=== PATIENT | male | born 1990 | race Caucasian/White ===

== ENCOUNTER 2017-04-16 17:30 | Inpatient (IN) | payer MEDICAID, OTHER ==
[~2017-04-16] VITALS: Ht 188 cm; Wt 72.3 kg
[~2017-04-16 17:30] MED LIST: IBUP800T28 PO
[2017-04-16 17:48] VITALS: BP 128/84; PULSE 66; RESP 12; O2SAT 100
--- NOTE | 2017-04-16 19:20 | ED.REPORT ---
HPI-General Illness Date of Service April 16, 2017 ED Provider: Mohit Garduno MD Pt is a healthy 26 y/o male presenting to the ED c/o constant lower abdominal pain onset 1 day ago. His girlfriend and he were "messing around" 2 days ago and believes that an unknown object may be lost up in his rectum. The patient has been attempting to have a bowel movement but instead of stool bright red blood is produced. His last BM was 2 days ago. He has no history of similar symptoms or hemorrhoids. Pt is a very vague historian and at first does not disclose that he thinks there is something in his rectum. He frequently changes his story and explanation throughout history taking. Nursing Notes Stated Complaint: BLOOD WHEN GOING TO THE BATHROOM Chief Complaint: Male Abdominal Pain Nursing Notes Reviewed: Yes Allergies: Coded Allergies: acetaminophen (Unverified Adverse Reaction, Severe, ITCHING (FROM HYDROCODONE), 10/16/15) hydrocodone (Verified Adverse Reaction, Severe, ITCHING, 10/16/15) Scheduled PRN Ibuprofen (Ibuprofen) 800 Mg Tablet 800 MG PO TID PRN PRN For Pain General Time Seen by MD: 19:13 Chief Complaint Abdominal pain Hx Obtained From: Patient Arrived By: Walk-in Sudden in Onset?: No Onset Occurred: 1 day ago Symptom Duration: Since onset Location: : Abdomen Quality: Painful Severity: Current: Moderate Severity: Maximum: Moderate Recent Healthcare: No recent doctor visit, No recent hospitalization Similar Sx Previous: No Past Medical History Past Medical History Healthy Past Surgical History ACL repeair on left 08/2015 Family History noncontributory Smoking History Current Every Day Smoker Social History Alcohol Use: Denies alcohol use Drug Use: THC Other Social History: Good social support, Local resident Occupation has a place to stay Ambulatory Status Independent Review of Systems Full Review of Systems Constitutional: Denies: Chills, Fever Respiratory: Denies: Non-productive cough, Shortness of breath GI: Reports: Abdominal pain, Constipation, Denies: Nausea, Vomiting Complete sys rev & neg: except as marked. Physical Exam Vital Signs Vital Signs Date Time Temp Pulse Resp B/P Pulse Ox O2 Delivery O2 Flow Rate FiO2 04/16/17 17:48 36.5 66 12 128/84 100 Room Air Initial VS: Reviewed, Vital signs normal Head / Eyes: Atraumatic, Normocephalic, PERRL ENT: Mucous membranes moist, Conjunctiva normal, No scleral icterus Neck: Supple, Full range of motion Respiratory: Breath sounds normal, Clear to auscultation, No respiratory distress Cardiovascular: Regular rate & rhythm, Heart sounds normal, Intact distal pulses Extremities: Vascular intact, Neuro intact, No swelling, No tenderness Skin: Warm, Dry, No cyanosis Neurologic: Alert, Oriented, Nonfocal Psychiatric: Mood/affect normal, Behavior normal, Normal thought content General/Constitutional: Awake, Alert, No acute distress, Well appearing, Cooperative, Not toxic appearing Abdomen: Atraumatic, Soft, No guarding, No rebound, No distention, No palpable mass Mild tenderness lower abdomen bilaterally Male Genitourinary: Atraumatic, No meatal blood, Testes NL (descended) Circumsized Rectum / Perineum: Atraumatic, No gross blood, No discharge, No fecal impaction , No fissures, No hemorrhoids, No mass, Prostate NL No foreign body palpated in rectum No stool in rectal vault Interpretation & Diagnostics Lab Results Interpretation Result Diagram: 04/16/17204304/16/172043 Test 04/16/17 20:44 White Blood Count 9.6th/mm3 (3.8-10.1) Red Blood Count 5.11mil/mm3 (4.40-5.80) Hemoglobin 15.1g/dL (13.8-17.2) Hematocrit 44.6% (41.0-50.0) Mean Corpuscular Volume 87.3fL (81-100) Mean Corpuscular Hemoglobin 29.5pg (27.0-35.0) Mean Corpuscular Hemoglobin Concent 33.9% (32.0-37.0) Red Cell Distribution Width 13.6% (12.3-15.4) Platelet Count 289bil/L (150-400) Neutrophils (%) (Auto) 76.2% (40-74) Lymphocytes (%) (Auto) 13.7% (14-46) Monocytes (%) (Auto) 7.7% (4-12) Eosinophils (%) (Auto) 2.0% (0-5) Basophils (%) (Auto) 0.2% (0-3) Sodium Level 137mEq/L (134-144) Potassium Level 3.9mEq/L (3.5-5.2) Chloride Level 99mEq/L (97-108) Carbon Dioxide Level 26mmol/L (18-29) Blood Urea Nitrogen 14mg/dL (6-20) Creatinine 0.84mg/dL (0.76-1.27) Estimat Glomerular Filtration Rate 117mL/min (>59) Glucose Level 107mg/dL (60-99) Calcium Level 9.1mg/dL (8.5-10.1) Magnesium Level 2.0mg/dL (1.6-2.6) Total Bilirubin 0.3mg/dL (0.0-1.2) Aspartate Amino Transf (AST/SGOT) 20U/L (0-50) Alanine Aminotransferase (ALT/SGPT) 22U/L (0-44) Alkaline Phosphatase 77U/L (25-150) Total Protein 6.8g/dL (6.4-8.4) Albumin 3.8g/dL (3.4-5.0) Lipase 12U/L (13-60) Hold Wood Top Tube Received (Received) Re-Eval/Medical Decision Med Decision/Clinical Course Pt is a healthy 26 y/o male presenting to the ED c/o constant lower abdominal pain onset 1 day ago. His girlfriend and he were "messing around" 2 days ago and believes that an unknown object may be lost up in his rectum. The patient has been attempting to have a bowel movement but instead of stool bright red blood is produced. His last BM was 2 days ago. He has no history of similar symptoms or hemorrhoids. Pt is a very vague historian and at first does not disclose that he thinks there is something in his rectum. He frequently changes his story and explanation throughout history taking. Here in the emergency room he is afebrile and hemodynamically stable. Rectal examination reveals no foreign body, no fissures, no hemorrhoids and no bright red blood or melena. Given the extremely vague nature of the patient's history and unclear presentation I opted to obtain a CT scan of the abdomen and pelvis with contrast which per my conversation with attending radiologist revealed possible pelvic abscess. Radiologist was unable to fully interpret the CT images and requested repeat CT scan with oral contrast. Meanwhile laboratory studies including CBC and CMP resulted unremarkable. He was signed out to oncoming physician pending repeat CT scan with oral contrast. Time of Eval: :15 Re-Evaluation/Progress Note: Omnipaque being ingested for oral contrast abdominal CT scan. Will sign out patient. Counseled Regarding: Diagnosis, Lab results Discharge & Departure Primary Impression: Lower abdominal pain Discharge Condition All VS Reviewed: Yes Condition: Stable Referrals: [facility] Care Transferred to: Dr. Jackson Care Transferred at: 23:59 Scribe Attestation Portions of this note were transcribed by Tom Piedra. I, Dr. Garduno personally performed the history, physical exam and medical decision-making; I reviewed and confirmed the accuracy of the information in the transcribed note. Signed by Maged Nance, 04/16/17 - 1929 Mohit Garduno MD April 16, 2017 19:20 TOM PIEDRA April 16, 2017 19:27
[2017-04-16] MEDS ORDERED: 0.9% Sodium Chloride 1,000 ML IV ONE (20:31)
[2017-04-16 20:59] LABS: BASOPHILS % (AUTO) 0.2 % (0-3); MONOCYTES % (AUTO) 7.7 % (4-12); Mean Corpuscular Hemoglobin 29.5 pg (27.0-35.0); Mean Corpuscular Volume 87.3 fL (81-100); NEUTROPHILS % (AUTO) 76.2 % (40-74); Platelet Count 289 bil/L (150-400)
[2017-04-16] MEDS ORDERED: IOHEXOL ONE (22:54)
[2017-04-16] MEDS ORDERED: Iohexol 240 mg/mL 10 mL Inj PO ONE (23:55)
[2017-04-17] VITALS (22 sets, daily range): BP systolic 110–152; BP diastolic 51–98; PULSE 48–109; RESP 12–27; O2SAT 96–100
[2017-04-17] MEDS ORDERED: Iohexol 300 mg/mL 30 mL Inj PO ONE ×2
[2017-04-17] MEDS ORDERED: Ondansetron 2 mg/mL 2 mL Inj ONE ×2 (00:47→14:43)
[2017-04-17] MEDS ORDERED: Ondansetron 2 mg/mL 2 mL Inj IVPUSH ONE (02:20)
[2017-04-17] MEDS ORDERED: Alum-Mag Hydrox-Simeth 30 mL Suspension PO PRN (02:55)
[2017-04-17] MEDS ORDERED: Ondansetron 2 mg/mL 2 mL Inj IVPUSH PRN ×3 (02:55→10:55)
[2017-04-17] MEDS: 0.9% Sodium Chloride 1,000 ML IV SCH ×4 (03:50→20:12)
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
[2017-04-17] MEDS ORDERED: metroNIDAZOLE Inj 500 MG in IV Premix 1 EACH IV SCH (07:10)
[2017-04-17] MEDS ORDERED: CeFAZolin Inj 2 GM in IV Premix 1 EACH IV ONE (07:10)
--- NOTE | 2017-04-17 07:56 | CONS ---
[address] [address] CONSULTATION REPORT PATIENT: MOSES ADAMS : 1990 MR#: [id number] ADMIT: 04/17/2017 JOB ID: [id number] DATE OF SERVICE: 04/17/2017 CHIEF COMPLAINT: Foreign body. HISTORY OF PRESENT ILLNESS: The patient is a 26-year-old male. INCOMPLETE DICTATION: Dictation ends here.
--- NOTE | 2017-04-17 08:26 | DRSVH ---
PROCEDURE: CT ABDOMEN AND PELVIS WITH CONTRAST ([id number]) INDICATIONS: abd pain, possible rectal FB, vague history/exam TECHNIQUE: After the administration of intravenous contrast, 5 mm thick sections acquired from the diaphragm to the symphysis. 5 mm coronal and sagittal reformats were acquired. For radiation dose reduction, the following was used: automated exposure control, adjustment of mA and/or kV according to patient jessica boudreaux. COMPARISON: [facility], CT, CT CHEST ABD PELVIS W CON, 06/22/2015, 13:06. FINDINGS: Image quality: Excellent. ABDOMEN: Lung bases: Lung bases are clear. Heart size is normal. Solid organs: Liver and spleen are normal in size and enhancement. Gallbladder is unremarkable. Bi liary system is non dilated. Pancreas enhances normally. No adrenal nodules. Kidneys demonstrate n ormal size and enhancement, without hydronephrosis. Peritoneum and bowel: Bowel loops are nonobstructed. There is prominent colonic wall thickening and inflammation most prominent in the sigmoid colon extending into the rectum. Perirectal hyperemia and edema is present. There is a prominent area of rounded expansion within the sigmoid colon with fluid level. No free air is identified. Nodes and vessels: No retroperitoneal or mesenteric adenopathy by size criteria. Aorta and inferior vena cava are normal in size. Miscellaneous: No ventral hernias. PELVIS: Genitourinary: Bladder wall thickness is normal. Miscellaneous: No inguinal hernias or adenopathy. Bones: No suspicious bony lesions. No vertebral body compression fractures. IMPRESSION: 1. Prominent perirectal Findings are suggestive of edema. However, developing areas of airspace disea se such as atelectasis and/or pneumonia cannot be excluded. and hematoma. In addition, a large geographic focus of air is present within the sigmoid colon with f luid level. This could represent a foreign body extending the wall the colon, although it is not well visualized. No evidence of obstruction or free air. The above findings were discussed with Dr. David Collazo on 04/17/17 at 8:15 AM. Dictated by: Ondina Pino M.D. on 04/17/2017 at 8:14 Approved by: Ondina Pino M.D. on 04/17/2017 at 8:24
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
[2017-04-17] MEDS ORDERED: Lactated Ringer's 500 ML IV PRN (09:57)
[2017-04-17] MEDS ORDERED: Lactated Ringer's 1,000 ML IV SCH (09:57)
[2017-04-17] MEDS ORDERED: Phenylephrine 10,000 mCg/mL Inj IVPUSH PRN (10:00)
[2017-04-17] MEDS ORDERED: Dexamethasone 4 mg/mL Inj IVPUSH PRN (10:00)
[2017-04-17] MEDS ORDERED: EPHEDrine Sulfate 50 mg/mL Inj IVPUSH PRN (10:00)
[2017-04-17] MEDS ORDERED: MetoCLOpramide 5 mg/mL 2 mL Inj IVPUSH PRN ×2 (10:00→10:55)
[2017-04-17] MEDS ORDERED: Lactated Ringer's 1,000 ML IV ONE ×2 (10:34→10:35)
--- NOTE | 2017-04-17 10:52 | CONS ---
[address] [address] CONSULTATION REPORT PATIENT: MOSES ADAMS : 1990 MR#: [id number] ADMIT: 04/17/2017 JOB ID: [id number] DATE OF SERVICE: 04/17/2017 CHIEF COMPLAINT: Rectal foreign body. HISTORY OF PRESENT ILLNESS: The patient is a 26-year-old male who presented to the emergency department last night due to lower abdominal pain. The patient has been having this problem for the past 2-3 days. After extensive questioning, he confessed that he and his girlfriend had inserted an unknown object into his rectum for sexual pleasure and maybe it was stuck up inside. The patient denies any nausea or vomiting. He does report passing flatus but when he tries to have a bowel movement he gets some blood and flatus. The patient denies any fever. Workup in the emergency department last night included laboratory examination that shows a white blood count of 9.6, and a CT scan of the abdomen and pelvis that suggests a foreign body in the rectosigmoid region. There is no dylan perforation at this time but it does suggest proctocolitis. There is a geographic foreign body within the sigmoid colon. They do not see any mechanical small bowel obstruction. PAST MEDICAL HISTORY: None. ALLERGIES: 1. ACETAMINOPHEN. 2. HYDROCODONE. MEDICATIONS AT HOME: None. SOCIAL HISTORY: The patient is single. He lives in [place]. He has a girlfriend. He works as a dental mechanic. He has a birthday coming up tomorrow. REVIEW OF SYSTEMS: Positive for the lower abdominal pain and passing blood per rectum. All other systems reviewed and were negative. PHYSICAL EXAMINATION: The patient currently in the hospital bed, in no acute distress. His BMI is 18.2. Temperature is 36.7, blood pressure 134/75, pulse is 58, respirations 16, saturation 98% on room air. Head is normocephalic, atraumatic. There is no scleral icterus. Neck is supple. Heart is in regular rate. Lungs are clear bilaterally. Abdomen is nondistended. It is soft on the right side. There is mild tenderness to palpation in the suprapubic and left lower quadrant location but there are no peritoneal signs at this time. I am not able to appreciate a foreign body. Extremities show no clubbing and no cyanosis. Neurologically, the patient is arousable, follows commands and answers appropriately. DATA: Again, the CT scan report suggests a foreign body in the sigmoid colon. ASSESSMENT AND PLAN: This is a 26-year-old male with a possible rectal or sigmoid foreign body. I will examine the patient under anesthesia and try to do a rigid sigmoidoscopy or a flexible sigmoidoscopy in the operating room. We may need to proceed to laparotomy with removal of the foreign object. This was all explained to the patient, and the patient understands and wishes to proceed.
[2017-04-17] MEDS: Dextrose 5% 500 ML IV SCH (10:54)
[2017-04-17] MEDS ORDERED: HYDROmorphone PCA 0.2 mg/mL 30 mL Inj IV PRN (10:55)
[2017-04-17] MEDS ORDERED: HYDROmorphone 0.5 mg/0.5 mL iSecure Syringe IVPUSH PRN (10:55)
[2017-04-17] MEDS: fentaNYL-PF 50 mCg/mL 2 mL Inj IVPUSH PRN ×4 (11:05→11:45)
[2017-04-17] MEDS: HYDROmorphone 1 mg/mL Inj IVPUSH PRN ×2 (11:05→11:33)
[2017-04-17] MEDS: HYDROmorphone PCA 0.2 mg/mL 30 mL Inj IV PRN (12:20)
[2017-04-17] MEDS ORDERED: Propofol 10,000 mCg/mL 20 mL Inj ONE (14:43)
[2017-04-17] MEDS ORDERED: HYDROmorphone 2 mg/mL Inj ONE (14:43)
[2017-04-17] MEDS ORDERED: MetoCLOpramide 5 mg/mL 2 mL Inj ONE (14:43)
[2017-04-17] MEDS ORDERED: Dexamethasone 4 mg/mL Inj ONE (14:43)
[2017-04-17] MEDS ORDERED: fentaNYL-PF 50 mCg/mL 2 mL Inj ONE (14:43)
[2017-04-17] MEDS ORDERED: Succinylcholine Chloride 20 mg/mL 5 mL Inj ONE (14:43)
--- NOTE | 2017-04-17 14:55 | OP ---
[address] [address] OPERATIVE REPORT PATIENT: MOSES ADAMS : 1990 MR#: [id number] ADMIT: 04/17/2017 JOB ID: [id number] DATE OF SURGERY: 04/17/2017 SURGEON: David Collazo MD GARDE MANGER: Mark Patten PA-C ANESTHESIA: General. PREOPERATIVE DIAGNOSIS(ES): Rectal or sigmoid foreign body. POSTOPERATIVE DIAGNOSIS(ES): Foreign body in the sigmoid colon. OPERATIVE PROCEDURE: Flexible sigmoidoscopy, rigid sigmoidoscopy, exploratory laparotomy, colotomy of the sigmoid colon and retrieval of the foreign body, primary repair of the sigmoid colon. INDICATION FOR PROCEDURE: The patient is a 26-year-old male with signs and symptoms and radiographic findings of a foreign body within the sigmoid colon. PRINCIPAL FINDING: Successful removal of the foreign body through a laparotomy and colotomy of the sigmoid colon. The sigmoid colon colotomy was primarily repaired in two layers. The assistance from the surgical PA was critical in completion of the case. PROCEDURE COURSE: The patient was brought to the operating table and was provided with general anesthesia. The patient was given IV antibiotics and SCDs. He was also provided with a Levi catheter. A time-out was performed. We started with a digital rectal exam, which I was unable to feel the mass. A flexible sigmoidoscopy was performed and at approximately 30-40 cm within the sigmoid colon, I was able to see a pink foreign body occupying the entire lumen of the sigmoid colon. Attempts to remove this endoscopically using a grasper was not successful. Next, I had tried a rigid sigmoidoscopy through the anus and I was not able to get up to the site of the foreign body. Therefore decision was made to convert to an open laparotomy. The patient's abdomen was prepped and draped in the usual sterile fashion. Next, a lower midline incision was made and extended to the left side of the umbilicus. The subcutaneous tissue was entered and the peritoneum was entered without difficulty. A Michael retractor was placed and I was able to easily palpate the foreign body within the mid sigmoid colon. The lateral attachments of the sigmoid colon was first detached to help better mobilize the mid sigmoid colon. Directly over the foreign body, a colotomy was made in a longitudinal direction along the tenia and the foreign body was able to be removed. The colotomy was approximately 2 inches in length. Next, the mucosal layer of the colotomy was repaired using interrupted Vicryl sutures and the serosal layer was closed using interrupted 3-0 silk sutures. Next, air was insufflated from the rectum and we tested the repair under water and there was no sign of air leak with good sigmoid colon distention. Next, irrigation of the pelvis was carried out. No other foreign body detected. The sigmoid colon was not ischemic. The bowel was returned to the anatomic location and the fascia was then closed from both ends using #1 PDS suture and the two sutures were then tied at the midline. The subcutaneous tissue was irrigated and the skin was closed using niya. By the end of procedure, needle counts and sponge counts were correct. The patient was then extubated and taken to the recovery room in stable satisfactory condition. KAILYN
--- NOTE | 2017-04-17 15:20 | PCM.PNMED ---
Subjective Date of Service April 17, 2017 Subjective He is seen to follow up admission for retrieval of a shaving cream plastic can cap from the sigmoid colon. He has just returned from an open Laparotomy after the sigmoidoscopy was unsuccessful at removing the plastic cap through the rectum. He tells me he has no medical problems, never drinks alcohol, uses no drugs and works as an automotive service porter. Exam Vital Signs Vital Sign - Last Date Time Temp Pulse Resp B/P Pulse Ox O2 Delivery O2 Flow Rate FiO2 04/17/17 12:17 36.4 54 18 150/91 98 Room Air 04/17/17 11:00 8 Intake and Output 04/16/17 04/16/17 04/17/17 Cumulative From/Thru 15:00 23:00 07:00 04/16/17 17:48 - 04/17/17 07:00 Intake Total 1000 ml 0 ml 1000 ml Balance 1000 ml 0 ml 1000 ml Intake Oral 0 ml 0 ml IV Total 1000 ml 1000 ml # Voids 1 1 Exam Heart: RRR without murmur Lungs: CTAB Abdomen: Tender midline incision, No masses, Bowel sounds are quiet. No ankle edema or skin rashes. Lab and Diagnostics Result Diagram: 04/16/17204304/16/172043 X-Rays, CTs and MRIs CT ABDOMEN AND PELVIS WITH CONTRAST IMPRESSION: Proctocolitis. Geographic foreign body within the sigmoid colon suggested on image 59/2 and 17/4. Small amount of free fluid. Other findings above. Please see final report for other non-emergent incidental findings. This report was transmitted to the emergency room at 04/17/2017 - 2:29:41 AM PDT. Portions of this note were transcribed by Javon Hogan. I, Dr. Jackson personally performed the history, physical exam and medical decision-making; I reviewed and confirmed the accuracy of the information in the transcribed note. Signed by : Maged De Oliveira, 04/17/17 and 0249. Assessment & Plan Arya Xiao is a healthy 26 yo male presenting to [facility] emergency department c/o constant lower abdominal pain 1. Acute Abdominal pain secondary to a plastic shaving cream cap retained in the sigmoid colon. Present on admission - nothing by mouth - management as per General Surgery day 0 S/P Laparotomy 2 Nicotine dependence Cessation discussed and encouraged - Nicotine patch upon request . Resuscitation Status: CPR: Attempt Resuscitation Aleida Rizvi MD April 17, 2017 15:20
[2017-04-17] MEDS: CeFAZolin Inj 2 GM in IV Premix 1 EACH IV SCH (17:36)
[2017-04-17] MEDS: metroNIDAZOLE Inj 500 MG in IV Premix 1 EACH IV SCH (18:27)
[2017-04-18] VITALS (9 sets, daily range): BP systolic 141–159; BP diastolic 67–84; PULSE 69–86; RESP 16–18; O2SAT 94–97
[2017-04-18 01:24] LABS: APPEARANCE,URINE CLEAR (CLEAR,HAZY); COLOR,URINE STRAW (YELLOW); OCCULT BLOOD,URINE NEGATIVE (NEGATIVE); UROBILINOGEN,URINE NORMAL (NORMAL)
[2017-04-18] MEDS: CeFAZolin Inj 2 GM in IV Premix 1 EACH IV SCH ×2 (01:43→09:18)
[2017-04-18] MEDS: metroNIDAZOLE Inj 500 MG in IV Premix 1 EACH IV SCH ×2 (02:43→10:08)
[2017-04-18 05:26] LABS: Mean Corpuscular Hemoglobin 29.5 pg (27.0-35.0); Platelet Count 280 bil/L (150-400)
[2017-04-18 05:27] LABS: BASOPHILS % (AUTO) 0.2 % (0-3); EOSINOPHILS % (AUTO) 0.8 % (0-5); MONOCYTES % (AUTO) 8.9 % (4-12); NEUTROPHILS % (AUTO) 76.6 % (40-74)
[2017-04-18] MEDS: HYDROmorphone PCA 0.2 mg/mL 30 mL Inj IV PRN (06:13)
[2017-04-18] MEDS: 0.9% Sodium Chloride 1,000 ML IV SCH ×2 (07:51→17:22)
--- NOTE | 2017-04-18 07:51 | PCM.PNMED ---
Subjective Date of Service April 18, 2017 Subjective He is sleepy, no dyspnea. He is having a fair amout of pelvic pain and using a AIR CONDITIONING MANAGER. No flatus. No chest pain. Exam Vital Signs Vital Sign - Last Date Time Temp Pulse Resp B/P Pulse Ox O2 Delivery O2 Flow Rate FiO2 04/18/17 05:55 16 96 04/18/17 05:35 37.2 78 143/68 Room Air 04/17/17 11:00 8 Intake and Output 04/17/17 04/17/17 04/18/17 Cumulative From/Thru 15:00 23:00 07:00 04/16/17 17:48 - 04/18/17 05:56 Intake Total 1320 ml 971 ml 1123 ml 4414 ml Output Total 255 ml 200 ml 455 ml Balance 1065 ml 771 ml 1123 ml 3959 ml Intake Oral 0 ml 0 ml IV Total 1320 ml 971 ml 1123 ml 4414 ml Output Urine Total 250 ml 200 ml 450 ml Estimated Blood Loss 5 ml 5 ml # Voids 1 Exam Alert and oriented -3, no distress. Fluent speech, flat affect. Anicteric sclera. Lungs are clear with normal rate and effort Heart is regular without murmur gallop or rub Abdomen soft and flat. Patient does have a gauze over his midline laparotomy site. He is tender in the left or right quadrant to palpation without rebound. Extremities are free of edema. Skin is free of rash or lesions. IVs and Medications Medications Reviewed: Medications were reviewed in detail Lab and Diagnostics Result Diagram: 04/18/17 0450 04/18/17 0450 X-Rays, CTs and MRIs CT ABDOMEN AND PELVIS WITH CONTRAST IMPRESSION: Proctocolitis. Geographic foreign body within the sigmoid colon suggested on image 59/2 and 17/4. Small amount of free fluid. Other findings above. Please see final report for other non-emergent incidental findings. This report was transmitted to the emergency room at 04/17/2017 - 2:29:41 AM PDT. Portions of this note were transcribed by Javon Hogan. I, Dr. Jackson personally performed the history, physical exam and medical decision-making; I reviewed and confirmed the accuracy of the information in the transcribed note. Signed by : Maged De Oliveira, 04/17/17 and 0249. Assessment & Plan Arya Xiao is a healthy 26 yo male presenting to [facility] emergency department c/o constant lower abdominal pain 1. Sigmoid colon foreign body,POA , removed via a sigmoid colectomy. POD 1. AIR CONDITIONING MANAGER , NPO, IVF, and continue antibiotics. 2 Nicotine dependence, POA. Stable. Cessation discussed and encouraged - Nicotine patch upon request . VTE Mechanical Devices: Intermittant Pneumatic CD Resuscitation Status: CPR: Attempt Resuscitation Eric Franklin MD April 18, 2017 07:51
--- NOTE | 2017-04-18 08:22 | PCM.PNSURG ---
Subjective Visit Information: Reason for Visit Rectal Fb Surgery/Surgery Date SIGMOIDOSCOPY 04/17/17 Post-Op Day # Date of Admission: April 17, 2017 at 03:18 Hospital Day # Subjective: not talkative, no flatus or BM yet, no n/v, been taking ice chips fine, on SWITCHBOARD MECHANIC Objective Objective Arousable in bed Abd: incision clean with niya Not tachycardic. Vital Sign- Last 8 Hours Date Time Temp Pulse Resp B/P Pulse Ox O2 Delivery O2 Flow Rate FiO2 04/18/17 05:55 16 96 04/18/17 05:35 37.2 78 16 143/68 96 Room Air 04/18/17 04:00 17 95 04/18/17 01:18 36.8 86 18 142/67 95 Room Air Intake and Output- Last 8 Hour 04/18/17 Cumulative From/Thru 07:00 04/16/17 17:48 - 04/18/17 05:56 Intake Total 1123 ml 4414 ml Output Total 455 ml Balance 1123 ml 3959 ml Intake Oral 0 ml IV Total 1123 ml 4414 ml Output Urine Total 450 ml Estimated Blood Loss 5 ml # Voids 1 Result Diagram: 04/18/17 0450 04/18/17 0450 Assessment & Plan Impression POD #1 s/p laparotomy with colotomy and removal of foreign body from sigmoid colon Problems: Plan D/c campuzano Start clears Ambulate/Incentive spirometer Await bowel function return Start SQ heparin VTE Prophylaxis: Sub-Q Heparin (Unfractionated) Resuscitation Status: CPR: Attempt Resuscitation David Collazo MD April 18, 2017 08:22
[2017-04-18] MEDS: Heparin 5,000 Unit/mL Inj SUBQ SCH ×2 (10:08→17:22)
[2017-04-18] MEDS: Dextrose 5% 500 ML IV SCH (10:08)
[2017-04-19] MEDS: Heparin 5,000 Unit/mL Inj SUBQ SCH ×4 (00:35→23:50)
[2017-04-19 01:25] VITALS: RESP 16; O2SAT 99
[2017-04-19] MEDS: 0.9% Sodium Chloride 1,000 ML IV SCH ×2 (04:55→17:34)
[2017-04-19 05:45] VITALS: BP 148/85; PULSE 76; RESP 17; O2SAT 96
[2017-04-19 05:53] LABS: BASOPHILS % (AUTO) 0.1 % (0-3); EOSINOPHILS % (AUTO) 1.8 % (0-5); MONOCYTES % (AUTO) 10.9 % (4-12); Mean Corpuscular Hemoglobin 29.3 pg (27.0-35.0); Mean Corpuscular Volume 86 fL (81-100); NEUTROPHILS % (AUTO) 77 % (40-74); Platelet Count 273 bil/L (150-400)
[2017-04-19 08:35] VITALS: BP 138/78; PULSE 84; RESP 16; O2SAT 97
--- NOTE | 2017-04-19 08:59 | PCM.PNSURG ---
Subjective Date of Service: April 19, 2017 Visit Information: Reason for Visit Rectal Fb Surgery/Surgery Date SIGMOIDOSCOPY 04/17/17 Post-Op Day #2 Date of Admission: April 17, 2017 at 03:18 Hospital Day # Subjective: No flatus or BM. Complains of incisional pain unrelieved with CLINICAL SAFETY SPECIALIST. Not ambulating secondary to pain. Not using incentive spirometry or SCDs. Drinking liquids with no nausea or vomiting, requesting more food. States he has been living in his car for the past several months. 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 Postop General: Other (as above) Gastrointestinal: Tolerating Oral Feedings, No N/V Pain Management: CLINICAL SAFETY SPECIALIST without Basal Postop Activity: Other (not ambulating) Objective Objective Lengthy discussion was held concerning depression and suicidal thoughts. The patient denies feeling depressed or any thoughts of suicide. States he will return to living in his car when he leaves the hospital. Although he is unable to describe any support system such as friends or family who he can rely on when he leaves the hospital. Vital Sign- Last 8 Hours Date Time Temp Pulse Resp B/P Pulse Ox O2 Delivery O2 Flow Rate FiO2 04/19/17 08:35 36.6 84 16 138/78 97 Room Air 04/19/17 05:45 17 96 04/19/17 05:45 36.8 76 17 148/85 96 Room Air 04/19/17 01:25 16 99 Intake and Output- Last 8 Hour 04/19/17 Cumulative From/Thru 07:00 04/16/17 17:48 - 04/19/17 06:39 Intake Total 1939 ml 8516 ml Output Total 2600 ml 7355 ml Balance -661 ml 1161 ml Intake Oral 720 ml 920 ml IV Total 1219 ml 7596 ml Output Urine Total 2600 ml 7350 ml Estimated Blood Loss 5 ml # Voids 1 # Bowel Movements 0 General: Alert, Cooperative, No Acute Distress Lungs: Diminished Heart: Regular Rate/Rhythm, No Murmurs/Rubs/Gallops Abdomen: Soft, Appropriately tender, Non-distended SURGICAL WOUND : Wound General Appearence: Sepideh, Intact, Well Approximated, No Erythema, No Discharge Extremities: Thigh&Calf Soft/Nontender Neuro: Normal Speech Catheters: None Result Diagram: 04/19/17 0510 04/18/17 0450 Assessment & Plan Impression 1. Mid sigmoid colon foreign body. POD #2 with no return of bowel function and stable wound. Progressing as expected. 2. Daily cigarette smoker 3. Verbalizes no suicidal ideation. Problems: Plan 1. Full liquid diet 2. Stop CLINICAL SAFETY SPECIALIST 3. Oxycodone 5-10 mg by mouth every 4 hours when necessary pain. 4. IV acetaminophen 1 g IV every 6 hours 5. May shower 6. Ambulate 3 times a day 7. Incentive spirometry is discussed and emphasized. 8. SCDs while in bed 9. Daily MiraLAX Pain Management: Transition to OxyContin and IV acetaminophen VTE Prophylaxis: Sub-Q Heparin (Unfractionated), SCDs Resuscitation Status: CPR: Attempt Resuscitation Mark Patten PA-C April 19, 2017 08:59
[2017-04-19] MEDS: Dextrose 5% 500 ML IV SCH (09:16)
[2017-04-19 09:25] VITALS: RESP 16; O2SAT 96
[2017-04-19] MEDS: Acetaminophen IV 1,000 MG in IV Premix 1 EACH IV SCH ×3 (09:43→21:48)
[2017-04-19 16:05] VITALS: BP 142/81; PULSE 86; RESP 16; O2SAT 98
--- NOTE | 2017-04-19 16:56 | PCM.PNMED ---
Subjective Date of Service April 19, 2017 Subjective Patient still having abdominal pain once the hospital. Denies suicidal ideation. Denies chest pain or dyspnea. Exam Vital Signs Vital Sign - Last Date Time Temp Pulse Resp B/P Pulse Ox O2 Delivery O2 Flow Rate FiO2 04/19/17 16:05 36.7 86 16 142/81 98 Room Air 04/17/17 11:00 8 Intake and Output 04/18/17 04/18/17 04/19/17 Cumulative From/Thru 15:00 23:00 07:00 04/16/17 17:48 - 04/19/17 06:39 Intake Total 200 ml 1963 ml 1939 ml 8516 ml Output Total 2850 ml 1450 ml 2600 ml 7355 ml Balance -2650 ml 513 ml -661 ml 1161 ml Intake Oral 200 ml 720 ml 920 ml IV Total 1963 ml 1219 ml 7596 ml Output Urine Total 2850 ml 1450 ml 2600 ml 7350 ml Estimated Blood Loss 5 ml # Voids 1 # Bowel Movements 0 0 0 Exam Gen.- A+ O 3 no apparent distress. Eyes- open conjunctiva clear, pupils equal nonicteric ENT- ears normal, nose normal, hearing intact Neck- supple/trach midline CVS-normal rate Lungs- regular, nonlabored GI- flat Musc- moving 4 no obvious deformity Neuro- cranial nerves II through XII intact to gross examination, nonfocal Skin- warm and dry, no rashes/lesions/wounds noted Psych- pleasant and appropriate, denies suicidal ideation Lab and Diagnostics Result Diagram: 04/19/17 0510 04/18/17 0450 X-Rays, CTs and MRIs CT ABDOMEN AND PELVIS WITH CONTRAST IMPRESSION: Proctocolitis. Geographic foreign body within the sigmoid colon suggested on image 59/2 and 17/4. Small amount of free fluid. Other findings above. Please see final report for other non-emergent incidental findings. This report was transmitted to the emergency room at 04/17/2017 - 2:29:41 AM PDT. Portions of this note were transcribed by Javon Hogan. IDr. Jackson personally performed the history, physical exam and medical decision-making; I reviewed and confirmed the accuracy of the information in the transcribed note. Signed by : Maged De Oliveira, 04/17/17 and 0249. Assessment & Plan 26 yo male presenting to [facility] emergency 04/17 c/o constant lower abdominal pain found to have a foreign body in rectum that required surgical removal. 04/19 by meeting this patient for the first day CASINO INVESTIGATOR was stopped, diet is being advanced, patient is not on any antibiotics. There is concern that there is either self-harm coercion type harm that is taking place that we would like to verify patient is safe to himself and from others before discharge. Sigmoid colon foreign body,POA , removed via a sigmoid colectomy 04/17. -Pain medication and diet per surgery -continue antibiotics per surgery Nicotine dependence, POA. Stable. Cessation discussed and encouraged - Nicotine patch upon request ?? Self-harm- consulting meat process worker to clear patient for mental health standpoint. Prophylaxis-DVT/GI per surgery Disposition- full code likely back to his car. VTE Prophylaxis: Sub-Q Heparin (Unfractionated), SCDs VTE Mechanical Devices: Intermittant Pneumatic CD Resuscitation Status: CPR: Attempt Resuscitation Isac Jorge MD April 19, 2017 16:56
[2017-04-19 19:55] VITALS: BP 135/80; PULSE 78; RESP 16
[2017-04-20 00:05] VITALS: BP 139/76; PULSE 80; RESP 16; O2SAT 96
[2017-04-20] MEDS: Acetaminophen IV 1,000 MG in IV Premix 1 EACH IV SCH ×2 (02:29→09:55)
[2017-04-20 04:34] VITALS: BP 123/73; PULSE 76; RESP 16; O2SAT 96
[2017-04-20] MEDS: Dextrose 5% 500 ML IV SCH (08:35)
[2017-04-20] MEDS: Heparin 5,000 Unit/mL Inj SUBQ SCH ×2 (08:40→16:10)
--- NOTE | 2017-04-20 10:32 | PCM.PNSURG ---
Subjective Date of Service: April 20, 2017 Visit Information: Reason for Visit Rectal Fb Surgery/Surgery Date SIGMOIDOSCOPY 04/17/17 Post-Op Day #3 Date of Admission: April 17, 2017 at 03:18 Hospital Day # Subjective: No flatus or bowel movement. Drinking full liquids with no nausea or vomiting. Requesting more food. Comfortable on oral analgesic and IV acetaminophen. Ambulatory in the hallway without assistance. Postop General: Other (as above) Gastrointestinal: Good Appetite, Tolerating Oral Feedings, No N/V Pain Management: PO, Other (IV acetaminophen) Postop Activity: Ambulating Independently Objective Vital Sign- Last 8 Hours Date Time Temp Pulse Resp B/P Pulse Ox O2 Delivery O2 Flow Rate FiO2 04/20/17 04:34 36.3 76 16 123/73 96 Room Air Intake and Output- Last 8 Hour 04/20/17 Cumulative From/Thru 07:00 04/16/17 17:48 - 04/20/17 05:33 Intake Total 1259 ml 28900 ml Output Total 7355 ml Balance 1259 ml 3600 ml Intake Oral 558 ml 2658 ml IV Total 701 ml 8297 ml Output Urine Total 7350 ml Estimated Blood Loss 5 ml # Voids 2 8 # Bowel Movements 0 0 General: Alert, No Acute Distress, Other (agitated, cursing, inconsolable.) Lungs: Clear to Auscultation Heart: Regular Rate/Rhythm Abdomen: Soft, Appropriately tender, Non-distended SURGICAL WOUND : Wound General Appearence: [place], Intact, Well Approximated, No Erythema, No Discharge Extremities: Thigh&Calf Soft/Nontender Neuro: Normal Speech Catheters: None Result Diagram: 04/19/17 0510 04/18/17 0450 Assessment & Plan Impression 1. Mid sigmoid colon foreign body. POD #3 with no return of bowel function and stable wound. Progressing as expected. 2. Daily cigarette smoker Problems: Plan 1. Hep-Lock IV 2. Continue full liquid diet. Pain Management: Oxycodone IV acetaminophen VTE Prophylaxis: Sub-Q Heparin (Unfractionated), SCDs (refusing to wear SCDs) Resuscitation Status: CPR: Attempt Resuscitation Mark Patten PA-C April 20, 2017 10:31
[2017-04-20] MEDS: 0.9% Sodium Chloride 1,000 ML IV SCH (14:30)
--- NOTE | 2017-04-20 15:08 | PCM.PNMED ---
Subjective Date of Service April 20, 2017 Subjective Patient still having some abdominal pain has not passed any gas much less stool. He has hungry. No nausea or vomiting, no chest pain, no dyspnea. Exam Vital Signs Vital Sign - Last Date Time Temp Pulse Resp B/P Pulse Ox O2 Delivery O2 Flow Rate FiO2 04/20/17 04:34 36.3 76 16 123/73 96 Room Air 04/17/17 11:00 8 Intake and Output 04/19/17 04/19/17 04/20/17 Cumulative From/Thru 14:59 22:59 06:59 04/16/17 17:48 - 04/20/17 05:33 Intake Total 1180 ml 1259 ml 67298 ml Output Total 7355 ml Balance 1180 ml 1259 ml 3600 ml Intake Oral 1180 ml 558 ml 2658 ml IV Total 701 ml 8297 ml Output Urine Total 7350 ml Estimated Blood Loss 5 ml # Voids 5 2 8 # Bowel Movements 0 0 Exam Gen.- A+ O 3 no apparent distress. Eyes- open conjunctiva clear, pupils equal nonicteric ENT- ears normal, nose normal, hearing intact Neck- supple/trach midline CVS-normal rate Lungs- regular, nonlabored GI- flat, tender, wound C/D/ Musc- moving 4 no obvious deformity Neuro- cranial nerves II through XII intact to gross examination, nonfocal Skin- warm and dry, no rashes/lesions/wounds noted Psych- pleasant and appropriate, denies suicidal ideation Lab and Diagnostics Result Diagram: 04/19/17 0510 04/18/17 0450 X-Rays, CTs and MRIs CT ABDOMEN AND PELVIS WITH CONTRAST IMPRESSION: Proctocolitis. Geographic foreign body within the sigmoid colon suggested on image 59/2 and 17/4. Small amount of free fluid. Other findings above. Please see final report for other non-emergent incidental findings. This report was transmitted to the emergency room at 04/17/2017 - 2:29:41 AM PDT. Portions of this note were transcribed by Javon Hogan. IDr. Jackson personally performed the history, physical exam and medical decision-making; I reviewed and confirmed the accuracy of the information in the transcribed note. Signed by : Maged De Oliveira, 04/17/17 and 0249. Assessment & Plan 26 yo male presenting to [facility] emergency 5/20 c/o constant lower abdominal pain found to have a foreign body in rectum that required surgical removal. 04/19 by meeting this patient for the first day GLOVE FORMER was stopped, diet is being advanced, patient is not on any antibiotics. There is concern that there is either self-harm coercion type harm that is taking place that we would like to verify patient is safe to himself and from others before discharge. 04/20 still no flatus much less stool. Awaiting bowel recovery. Sigmoid colon foreign body,POA , removed via a sigmoid colectomy 04/17. -Pain medication and diet per surgery -continue antibiotics per surgery Nicotine dependence, POA. Stable. Cessation discussed and encouraged - Nicotine patch upon request ?? Self-harm- facility maintenance worker has cleared patient 04/20 Prophylaxis-DVT/GI per surgery Disposition- full code likely back to his car. VTE Prophylaxis: Sub-Q Heparin (Unfractionated), SCDs (refusing to wear SCDs) VTE Mechanical Devices: Intermittant Pneumatic CD Resuscitation Status: CPR: Attempt Resuscitation Isac Jorge MD April 20, 2017 15:08
[2017-04-20 16:00] VITALS: BP 138/83; PULSE 82; RESP 16; O2SAT 97
[2017-04-20 19:48] VITALS: BP 154/79; PULSE 64; RESP 20; O2SAT 99
[2017-04-21] MEDS: Heparin 5,000 Unit/mL Inj SUBQ SCH ×3 (00:48→17:51)
[2017-04-21 05:11] VITALS: BP 130/75; PULSE 63; RESP 20; O2SAT 98
[2017-04-21] MEDS: Dextrose 5% 500 ML IV SCH (10:54)
--- NOTE | 2017-04-21 11:13 | PCM.PNSURG ---
Subjective Date of Service: April 21, 2017 Visit Information: Reason for Visit Rectal Fb Surgery/Surgery Date SIGMOIDOSCOPY 04/17/17 Post-Op Day # 4 Date of Admission: April 17, 2017 at 03:18 Hospital Day # Subjective: Passing flatus since yesterday afternoon and through the night. No bowel movement. Requesting more food. Drinking full liquid diet with no nausea or vomiting. Ambulatory in the hallway. Pain well controlled on oral analgesic. Postop General: No Complaints Gastrointestinal: Good Appetite, Tolerating Oral Feedings, No N/V, Passing Flatus Pain Management: PO Postop Activity: Ambulating Independently Objective Vital Sign- Last 8 Hours Date Time Temp Pulse Resp B/P Pulse Ox O2 Delivery O2 Flow Rate FiO2 04/21/17 05:11 36.7 63 20 130/75 98 Room Air Intake and Output- Last 8 Hour 04/21/17 Cumulative From/Thru 07:00 04/16/17 17:48 - 04/21/17 05:59 Intake Total 1040 ml 81214 ml Output Total 7355 ml Balance 1040 ml 7023 ml Intake Oral 1040 ml 5498 ml IV Total 8880 ml Output Urine Total 7350 ml Estimated Blood Loss 5 ml # Voids 3 15 # Bowel Movements 0 General: Alert, Cooperative (calm and cooperative this morning), No Acute Distress Lungs: Clear to Auscultation Heart: Regular Rate/Rhythm, No Murmurs/Rubs/Gallops Abdomen: Soft, Appropriately tender, Non-distended SURGICAL WOUND : Wound General Appearence: [place], Intact, Well Approximated, No Erythema, No Discharge Neuro: Normal Speech Catheters: None Result Diagram: 04/19/17 0510 04/18/17 0450 Assessment & Plan Impression 1. Mid sigmoid colon foreign body. POD # 4 with bowel function beginning to return. 2. Daily cigarette smoker Problems: Plan Soft diet, advance to regular as tolerated. If continues to do well anticipate discharge in the morning. Pain Management: Oral analgesic VTE Prophylaxis: Sub-Q Heparin (Unfractionated), SCDs (refusing to wear SCDs) Resuscitation Status: CPR: Attempt Resuscitation Mark Patten PA-C April 21, 2017 11:13
--- NOTE | 2017-04-21 11:42 | PCM.PNMED ---
Subjective Date of Service April 21, 2017 Subjective Stomach is hurting less, passing lots of gas very hungry. No chest pain, no dyspnea, no nausea or vomiting Exam Vital Signs Vital Sign - Last Date Time Temp Pulse Resp B/P Pulse Ox O2 Delivery O2 Flow Rate FiO2 04/21/17 05:11 36.7 63 20 130/75 98 Room Air 04/17/17 11:00 8 Intake and Output 04/20/17 04/20/17 04/21/17 Cumulative From/Thru 15:00 23:00 07:00 04/16/17 17:48 - 04/21/17 05:59 Intake Total 583 ml 1800 ml 1040 ml 12774 ml Output Total 7355 ml Balance 583 ml 1800 ml 1040 ml 7023 ml Intake Oral 1800 ml 1040 ml 5498 ml IV Total 583 ml 8880 ml Output Urine Total 7350 ml Estimated Blood Loss 5 ml # Voids 4 3 15 # Bowel Movements 0 Exam Gen.- A+ O 3 no apparent distress. Eyes- open conjunctiva clear, pupils equal nonicteric ENT- ears normal, nose normal, hearing intact Neck- supple/trach midline CVS-normal rate Lungs- regular, nonlabored GI- flat, tender, wound C/D/I, NABS Musc- moving 4 no obvious deformity Neuro- cranial nerves II through XII intact to gross examination, nonfocal Skin- warm and dry, no rashes/lesions/wounds noted Psych- pleasant and appropriate, Lab and Diagnostics Result Diagram: 04/19/17 0510 04/18/17 0450 X-Rays, CTs and MRIs CT ABDOMEN AND PELVIS WITH CONTRAST IMPRESSION: Proctocolitis. Geographic foreign body within the sigmoid colon suggested on image 59/2 and 17/. Small amount of free fluid. Other findings above. Please see final report for other non-emergent incidental findings. This report was transmitted to the emergency room at 04/17/2017 - 2:29:41 AM PDT. Portions of this note were transcribed by Javon Hogan. I, Dr. Jackson personally performed the history, physical exam and medical decision-making; I reviewed and confirmed the accuracy of the information in the transcribed note. Signed by : Maged De Oliveira, 04/17/17 and 0249. Assessment & Plan 26 yo male presenting to [facility] emergency 04/17 c/o constant lower abdominal pain found to have a foreign body in rectum that required surgical removal. 04/19 by meeting this patient for the first day PRACTICE CONSULTANT was stopped, diet is being advanced, patient is not on any antibiotics. There is concern that there is either self-harm coercion type harm that is taking place that we would like to verify patient is safe to himself and from others before discharge. 04/20 still no flatus much less stool. Awaiting bowel recovery. 04/21 patient passing gas, surgery advancing diet hopefully discharging 04/22 if patient tolerating food and bowels move. Sigmoid colon foreign body,POA , removed via a sigmoid colectomy 04/17. -Pain medication and diet per surgery -continue antibiotics per surgery Nicotine dependence, POA. Stable. Cessation discussed and encouraged - Nicotine patch upon request ?? Self-harm- pony worker has cleared patient 04/20 Prophylaxis-DVT/GI per surgery Disposition- full code likely back to his car. VTE Prophylaxis: Sub-Q Heparin (Unfractionated), SCDs (refusing to wear SCDs) VTE Mechanical Devices: Intermittant Pneumatic CD Resuscitation Status: CPR: Attempt Resuscitation Isac Jorge MD April 21, 2017 11:42
[2017-04-21] MEDS: 0.9% Sodium Chloride 1,000 ML IV SCH (12:41)
[2017-04-21 12:57] VITALS: BP 127/80; PULSE 69; RESP 20; O2SAT 98
[2017-04-21] MEDS: oxyCODONE-Acetamin 5-325 mg Tablet PO PRN ×2 (14:18→19:24)
[2017-04-21] MEDS: Polyethylene Glycol (PEG) 17 Gm Powder PO PRN (14:18)
[2017-04-21 19:17] VITALS: BP 130/87; PULSE 97; RESP 18; O2SAT 98
[2017-04-22] MEDS: Heparin 5,000 Unit/mL Inj SUBQ SCH ×2 (01:14→07:58)
[2017-04-22] MEDS: oxyCODONE-Acetamin 5-325 mg Tablet PO PRN ×3 (01:15→12:46)
[2017-04-22 05:00] VITALS: BP 128/80; PULSE 78; RESP 20; O2SAT 95
[2017-04-22] MEDS: 0.9% Sodium Chloride 1,000 ML IV SCH (07:44)
[2017-04-22] MEDS: Dextrose 5% 500 ML IV SCH (10:54)
--- NOTE | 2017-04-22 11:08 | PCM.PNSURG ---
Subjective Date of Service: April 22, 2017 Date of Service: April 22, 2017 Visit Information: Reason for Visit Rectal Fb Surgery/Surgery Date SIGMOIDOSCOPY 04/17/17 Post-Op Day # 5 s/p exploratory laparotomy, colotomy of the sigmoid colon and retrieval of foreign body, primary repair of the sigmoid colon. Date of Admission: April 17, 2017 at 03:18 Hospital Day # Subjective: Patient reports good pain control, tolerating general diet with no nausea or vomiting. Passing flatus with no abdominal pain but no BM. Denies fevers and chills. Postop General: No Complaints, No Shortness of Breath, No Chest Pain Gastrointestinal: Good Appetite, Tolerating Oral Feedings, No N/V, No Belching , Passing Flatus Pain Management: PO Postop Activity: Ambulating Independently Objective Vital Sign- Last 8 Hours Date Time Temp Pulse Resp B/P Pulse Ox O2 Delivery O2 Flow Rate FiO2 04/22/17 05:00 36.7 78 20 128/80 95 Room Air Intake and Output- Last 8 Hour 04/22/17 Cumulative From/Thru 06:59 04/16/17 17:48 - 04/22/17 06:10 Intake Total 874 ml 68220 ml Output Total 7355 ml Balance 874 ml 27014 ml Intake Oral 874 ml 8494 ml IV Total 8880 ml Output Urine Total 7350 ml Estimated Blood Loss 5 ml # Voids 2 22 # Bowel Movements 0 0 General: Alert, Oriented X3, Cooperative, No Acute Distress Neck: Supple Lungs: Clear to Auscultation Heart: Exam Unremarkable Abdomen: Benign, Non-tender SURGICAL WOUND : Wound General Appearence: [place], Intact, Well Approximated, No Erythema, No Discharge, No Inflammatory Changes Dressing & Drainage Status: No Purulent Drainage, No Odor Result Diagram: 04/19/17 0510 04/18/17 0450 Assessment & Plan Impression satisfactory post op course now pod #5 from exploratory laparotomy, colotomy of the sigmoid colon and retrieval of the foreign body, primary repair of the sigmoid colon. Problems: Plan May discharge from surgical perspective in spite of no bm -d/c with 1 bottle miralax and percocet -follow up specifically next wednesday04/27/17 with Ethel HERRERA for staple removal -see discharge instructions for other pertinent details Pain Management: percocet VTE Prophylaxis: Sub-Q Heparin (Unfractionated), SCDs (refusing to wear SCDs) Resuscitation Status: CPR: Attempt Resuscitation Gordon Calvin PA-C April 22, 2017 11:08
--- NOTE | 2017-04-22 11:17 | PCM.DISURG ---
Gordon Calvin PA-C 04/22/17 1117: Surgical Discharge Instruction Date of Service April 22, 2017 Dates of Hospitalization Date of Hospital Admission April 17, 2017 at 03:18 Providers Admitting Physician: Yeison Rahman MD Primary Care Physician: Tom Attending Physician: Yeison Rahman MD Discharge Diagnosis Discharge Diagnosis sigmoid colon foreign body Post Operative diagnosis retained foreign body status post exploratory laparotomy, colotomy of the sigmoid colon and retrieval of the foreign body, primary repair of the sigmoid colon. Diet Discharge Diet: No restrictions Activity Discharge Activity-General: Balance rest and activity, No lifting >10 pounds for 4-6 weeks, No driving while taking narcotic, May drive in (after release from [place] surgery clinic ) Dressing and Incisional Care Hygiene: May shower, DO NOT soak incision under water, NO bathtub, hot tub or whirlpool Additional Instructions Discharge Instructions Use tylenol for primary pain medication. Avoid using percocet unless pain not relieved by tylenol. Do not drive until allowed to do so by Surgery clinic and in no circumstances while taking narcotic. Please use this opportunity to stop smoking as it will improve your surgical healing. Be sure to remember your appointments with primary care and the general surgery office. Follow Up Plan Mid-level Provider (F9): Mark Patten PA-C Follow-up appointment: Date (04/27/2017) Isac Jorge MD 04/22/17 1325: Gordon Calvin PA-C April 22, 2017 11:17 Isac Jorge MD April 22, 2017 13:25
[2017-04-22] MEDS ORDERED: OXYC1TAB24 PO (11:23)
[2017-04-22] MEDS ORDERED: POLY17PO6 PO (11:23)
[2017-04-22] MEDS: Polyethylene Glycol (PEG) 17 Gm Powder PO PRN (12:46)
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
[2017-04-22 15:19] VITALS: BP 127/75; PULSE 64; RESP 16; O2SAT 98
--- NOTE | 2017-04-23 16:48 | PATH ---
SURGICAL PATHOLOGY Attending Physician:David Collazo M.D. CASE STATUS: Signed Out PATIENT NAME: MOSES ADAMS PID: [id number] : 1990 DATE COLLECTED:04/17/2017 00:00 SPECIMEN: Foreign Body CLINICAL HISTORY: 1). FOREIGN BODY FROM SIGMOID FINAL DIAGNOSIS: 1.FOREIGN BODY FROM SIGMOID, REMOVAL: FOREIGN MATERIAL, GROSS ONLY DIAGNOSIS. ICD10 T18.4XXA GROSS DESCRIPTION: The specimen is received in formalin, labeled with the patient's name, sublabeled as foreign body from sigmoid and consists of a pink plastic Skintimate shave gel canister cap (length-4.6 cm, and diameter-5.5 cm). The plastic is less than 0.1 cm thick. The top is imprinted with a miguel. The specimen is not suitable for histological analysis therefore no sections are submitted. This case has been reviewed by Dr. Dawson Spivey. 04/20/17 JM MICRO DESCRIPTION: See diagnosis. ICD-9 CODES: CPT CODES: 1: 08638 Electronically Signed Out Machelle John MD [facility]ly [facility] Pathology [facility] [address], [place] [address] Technical component performed at [facility], [address] [place] [address] Ave[address], [place], [address]
== END 2017-04-22 14:54 | disposition home or self-care (01) | DRG 223 ==
LOC: SED 17:33 → OBSVTOIN 04-17 03:18 → OSC 04-17 03:18
PROVIDERS: ADMIT Hospitalist; ATTEND Hospitalist
PROC: 0DJD8ZZ Inspection of Lower Intestinal Tract, Via Natural or Artificial Opening Endoscopic (ICD-10-PCS; 2017-04-17)
PROC: 0DCN0ZZ Extirpation of Matter from Sigmoid Colon, Open Approach (ICD-10-PCS; principal; 2017-04-17 07:57)
DX: T18.4XXA Foreign body in colon, initial encounter (principal); F17.210 Nicotine dependence, cigarettes, uncomplicated; F12.90 Cannabis use, unspecified, uncomplicated; X58.XXXA Exposure to other specified factors, initial encounter; Y93.89 Activity, other specified; Y99.8 Other external cause status; Z53.39 Other specified procedure converted to open procedure; Z59.0 Homelessness

== ENCOUNTER 2017-05-11 20:39 | Emergency (ER) | payer OTHER ==
[~2017-05-11] VITALS: Ht 188 cm; Wt 72.0 kg
[~2017-05-11 20:39] MED LIST changes: -IBUP800T28 PO; +OXYC1TAB24 PO; +POLY17PO6 PO
[2017-05-11 20:49] VITALS: BP 125/83; PULSE 58; RESP 20; O2SAT 98
--- NOTE | 2017-05-11 22:07 | DRSVH ---
PROCEDURE: X-RAY LEFT SHOULDER, MINIMUM TWO VIEWS ([id number]) INDICATIONS: pain TECHNIQUE: 3 views of the shoulder were acquired. COMPARISON: None. FINDINGS: Bones: Normal left shoulder alignment. Deformity of the humeral head consistent with a Hill-Sachs d eformity. Soft tissues: No suspicious soft tissue calcifications. IMPRESSION: Normal left shoulder location. Hill-Sachs deformity consistent with previous dislocatio ns. Dictated by: Pete Templeton M.D. on 05/11/2017 at 22:05 Approved by: Pete Templeton M.D. on 05/11/2017 at 22:06
--- NOTE | 2017-05-11 22:17 | ED.REPORT ---
HPI-URI / Cough / Cold Date of Service May 11, 2017 ED Provider: Bernard De La Cruz MD Patient is a 27 year old male with a history of a bowel obstruction surgery last month who presents to the ED complaining of a productive cough with green sputum for the past day. Associated symptoms include nasal congestion, sneezing , body aches, photophobia, chest pain that started earlier today and left shoulder pain. He denies fever or ear ache. The patient reports that he has dislocated his shoulder multiple times and it normally goes back in to place. He also states that he doesn't get the flu vaccine because he never gets sick but when he does, it only lasts a couple of days. Nursing Notes Stated Complaint: SICK Chief Complaint: FLU/Cold Symptoms Nursing Notes Reviewed: Yes Allergies: Coded Allergies: acetaminophen (Verified Allergy, Mild, STOMACH ACHE, 04/17/17) hydrocodone (Verified Adverse Reaction, Severe, ITCHING, 10/16/15) No Active Prescriptions or Reported Meds General Time Seen by MD: 22:12 Chief Complaint Cough, productive... Hx Obtained From: Patient Arrived By: Walk-in Onset Occurred: 1 day ago Symptom Duration: Since onset Recent Healthcare: Recent doctor visit, Recent hospitalization Past Medical History Past Medical History Healthy Past Surgical History ACL repeair on left 08/2015 bowel obstruction surgery Family History noncontributory Smoking History Current Every Day Smoker Social History Alcohol Use: Denies alcohol use Drug Use: THC Other Social History: Good social support, Local resident Occupation has a place to stay Ambulatory Status Independent Review of Systems Review of Systems Note: body aches Constitutional: Reports: Malaise, Denies: Chills, Fever Eyes: Reports: Photophobia Ears / Nose / Throat: Reports: Nasal congestion, Sinus problem, Sore throat, Denies: Earache bilateral Respiratory: Reports: Prod cough, green, Denies: Shortness of breath, Wheezing Complete sys rev & neg: except as marked. Cardiovascular: Reports: Chest pain Musculoskeletal: Reports: Extremity pain (left shoulder) Physical Exam Initial Vital Signs Vital Signs (First) Date Time Temp Pulse Resp B/P Pulse Ox O2 Delivery O2 Flow Rate FiO2 05/11/17 20:49 36.0 58 20 125/83 98 Room Air Initial VS: Reviewed, Vital signs normal General/Constitutional: Awake, Alert, No acute distress ENT: Atraumatic, Airway patent, Mucous membranes moist Respiratory / Chest: Atraumatic, Breath sounds NL, Breath sounds = bilat, No respiratory distress Head / Eyes: Atraumatic, Normocephalic, PERRL, EOMI Cardiovascular: Heart rate NL, Regular rhythm, Heart sounds NL Skin: Warm, Dry multiple small cutaneous skin sores in rodriguez area and arms Neurologic: Oriented X3, Speech NL, No motor deficits, No sensory deficits Upper Extremity / MS: Atraumatic, Full range of motion Lower Extremity / Pelvis / MS: Atraumatic, Full range of motion Psychiatric: Affect NL, Mood NL Interpretation & Diagnostics X-Ray Interpretation Xray Interpretation: IMPRESSION: Normal left shoulder location. Hill-Sachs deformity consistent with previous dislocations. Dictated by: Pete Templeton M.D. on 05/11/2017 at 22:05 Approved by: Pete Templeton M.D. on 05/11/2017 at 22:06 X-Ray Ordered: Shoulder left Interpretation / Wet Read by: Interpret - Radiologist Re-Eval/Medical Decision Med Decision/Clinical Course 27-year-old male with upper respiratory symptoms. Influenza negative. No evidence of serious bacterial illness. Re-Evaluation/Progress : Time of Eval: 23:22 Re-Evaluation/Progress Note: Discussed results and plan for discharge. The patient understands and agrees to the plan. All questions were addressed. Counseled Regarding: Diagnosis, Lab results, Need for follow-up, When/why to return to ED Discharge & Departure Impression: Primary Impression: Viral syndrome Disposition: Home Discharge Condition All VS Reviewed: Yes Condition: Stable Patient Instructions: Upper Respiratory Infection (ED) Additional Instructions: Your symptoms are most likely from a viral upper respiratory type infection. Influenza test is negative. I find no evidence of bacterial infection that needs antibiotics. Your shoulder x-ray shows bony changes from chronic dislocation, without evidence of fracture or dislocation at this time. Tylenol and/or ibuprofen as needed for pain. Rest and fluids. Follow-up as needed. Referrals: [facility] Scribe Attestation Portions of this note were transcribed by Radha Ramos. I, Dr. De La Cruz personally performed the history, physical exam and medical decision-making; I reviewed and confirmed the accuracy of the information in the transcribed note. Signed by:Maged Garber, 05/11/17 and 2086. copies to: [facility] Bernard De La Cruz MD May 11, 2017 22:17 Heidy Ramos May 11, 2017 22:26
[2017-05-11 23:38] VITALS: BP 123/72; PULSE 82; RESP 14; O2SAT 97
== END 2017-05-11 23:38 | disposition home or self-care (01) ==
LOC: SED 20:39
DX: B34.9 Viral infection, unspecified (principal); R09.81 Nasal congestion; R06.7 Sneezing; H53.149 Visual discomfort, unspecified; R07.9 Chest pain, unspecified; M25.512 Pain in left shoulder; F17.200 Nicotine dependence, unspecified, uncomplicated; Z88.5 Allergy status to narcotic agent; Z88.8 Allergy status to other drugs, medicaments and biological substances